=== PATIENT | male | born 1950 | race African-American/Black ===

== ENCOUNTER 2016-08-24 14:30 | Emergency (ER) | payer MEDICAID, OTHER ==
[~2016-08-24] VITALS: Ht 182.9 cm; Wt 85.0 kg
[2016-08-24] MEDS ORDERED: SODIUM CHLORIDE 0.9% 1,000 ML IV ONE (15:15)
[2016-08-24] MEDS ORDERED: SODIUM CHLORIDE 0.9% 1000ML BAG (SEPSIS BOLUS) IV ONE (15:15)
[2016-08-24 15:51] LABS: HEMATOCRIT. 35.9 % (42.0-52.0); MEAN CORPUSCULAR HEMOGLOBIN 35.5 pg (28.0-32.0); MEAN CORPUSCULAR HGB CONC 33.5 g/dL (31.0-37.0); MEAN CORPUSCULAR VOLUME 105.8 fL (80.0-94.0); MEAN PLATELET VOLUME 7.3 fl (7.4-10.4); PLATELET 271 x1000/uL (130-400); RED BLOOD CELL COUNT 3.39 mill/uL (4.7-6.1); RED CELL DISTRIBUTION WIDTH 12.4 % (11.6-14.6); WHITE BLOOD COUNT 3.1 x1000/uL (4.5-11.0)
[2016-08-24 15:55] LABS: DIFFERENTIAL COMMENT 1; INR 1.1
[2016-08-24 16:06] LABS: ANION GAP 13; CALCIUM 7.5 mg/dL (8.5-10.1); CARBON DIOXIDE 24 mEq/L (21-32); CHLORIDE 111 mEq/L (98-107); ETHANOL BLOOD 56 mg/dL; INDEX HEMOLYSI 1 (1-3); INDEX ICTERIC 1 (1-4); INDEX LIPEMIC 1 (1-3); TROPONIN I < 0.02 ng/mL (0.00-0.04); UREA NITROGEN BLOOD 13 mg/dL (7-21); eGFR > 60 mL/min (>60)
[2016-08-24 16:13] LABS: NUCLEATED RED BLOOD CELLS 2 /100 WBC; PLATELET ESTIMATE NORMAL
[2016-08-24 17:18] LABS: *AMPHETAMINES SCREEN URINE NEGATIVE (NEGATIVE); *BARBITURATES SCREEN URINE NEGATIVE (NEGATIVE); *BENZODIAZEPINES SCREEN URINE NEGATIVE (NEGATIVE); *COCAINE SCREEN URINE PRESUMTIVE POSITIVE (NEGATIVE); CANNABINOID URINE SCREEN PRESUMTIVE POSITIVE (NEGATIVE); ECSTASY MDMA SCREEN URINE NEGATIVE (NEGATIVE); METHADONE URINE SCREEN NEGATIVE (NEGATIVE); OPIATES URINE SCREEN NEGATIVE (NEGATIVE); PHENCYCLIDINE URINE SCREEN NEGATIVE (NEGATIVE)
[2016-08-24 18:06] VITALS: BP 120/61
== END 2016-08-24 18:08 | disposition home or self-care (01) ==
LOC: ER 14:35
DX: F12.10 Cannabis abuse, uncomplicated (principal); F14.10 Cocaine abuse, uncomplicated; I10 Essential (primary) hypertension
CPT/HCPCS: 36415; 71010; 80048; 80305; 84484; 85025; 85610; 93005; 96360; 99285; G0482; Z7610; J7030

== ENCOUNTER 2017-10-15 13:51 | Emergency (ER) | payer MEDICARE, MEDICAID ==
[~2017-10-15] VITALS: Ht 180.3 cm; Wt 100.0 kg
[2017-10-15] MEDS ORDERED: SODIUM CHLORIDE 0.9% 1,000 ML IV ONE (14:08)
[2017-10-15 14:33] LABS: BASOPHILS % 1.5 % (0.0-2.0); EOSINOPHILS % 1.3 % (0.0-5.0); HEMATOCRIT. 26.8 % (42.0-52.0); HEMOGLOBIN. 9.3 g/dL (14.0-18.0); LYMPHOCYTES % 25.5 % (20.0-50.0); MEAN CORPUSCULAR HEMOGLOBIN 36.5 pg (28.0-32.0); MEAN PLATELET VOLUME 6.9 fl (7.4-10.4); MONOCYTES % 13.6 % (2.0-8.0); NEUTROPHILS % 58.1 % (40.0-76.0); PLATELET 304 x1000/uL (130-400); RED BLOOD CELL COUNT 2.55 mill/uL (4.7-6.1); RED CELL DISTRIBUTION WIDTH 12.3 % (11.6-14.6)
[2017-10-15 14:36] LABS: CHLORIDE 112 mEq/L (98-107)
[2017-10-15 14:37] LABS: INR 1.1; PROTHROMBIN TIME 11.3 sec (9.4-11.6)
[2017-10-15 14:40] LABS: ETHANOL BLOOD < 10 mg/dL
[2017-10-15 17:07] VITALS: BP 130/65
== END 2017-10-15 17:28 | disposition home or self-care (01) ==
LOC: ER 13:51
DX: R55 Syncope and collapse (principal); I10 Essential (primary) hypertension; I69.351 Hemiplegia and hemiparesis following cerebral infarction affecting right dominant side; I69.328 Other speech and language deficits following cerebral infarction
CPT/HCPCS: 36415; 70450; 80053; 84484; 85025; 85610; 93005; 96360; 96361; 99285; G0482; J7030

== ENCOUNTER 2018-01-26 12:32 | Emergency (ER) | payer MEDICARE, MEDICAID ==
[~2018-01-26] VITALS: Ht 175.3 cm; Wt 86.0 kg
[2018-01-26 15:07] LABS: HEMATOCRIT. 39.2 % (42.0-52.0); HEMOGLOBIN. 13.2 g/dL (14.0-18.0); MEAN CORPUSCULAR HEMOGLOBIN 33.8 pg (28.0-32.0); MEAN CORPUSCULAR VOLUME 100.9 fL (80.0-94.0); MEAN PLATELET VOLUME 7.4 fl (7.4-10.4); PLATELET 283 x1000/uL (130-400); RED BLOOD CELL COUNT 3.89 mill/uL (4.7-6.1); RED CELL DISTRIBUTION WIDTH 13.6 % (11.6-14.6)
[2018-01-26 15:14] LABS: PROTHROMBIN TIME 10.4 sec (9.1-11.1)
[2018-01-26 15:16] LABS: CHLORIDE 111 mEq/L (98-107)
[2018-01-26 15:24] LABS: ETHANOL BLOOD < 10 mg/dL
[2018-01-26] MEDS ORDERED: ACETAMINOPHEN WITH CODEINE 300/30MG TABLET PO ONE (15:45)
[2018-01-26 16:10] VITALS: BP 140/71
[2018-01-26 16:42] LABS: ATYPICAL LYMPHOCYTES 3; PLATELET ESTIMATE NORMAL
== END 2018-01-26 16:12 | disposition home or self-care (01) ==
LOC: ER 12:32
DX: S40.011A Contusion of right shoulder, initial encounter (principal); S70.01XA Contusion of right hip, initial encounter; S40.021A Contusion of right upper arm, initial encounter; I69.951 Hemiplegia and hemiparesis following unspecified cerebrovascular disease affecting right dominant side; W18.2XXA Fall in (into) shower or empty bathtub, initial encounter; Y93.E1 Activity, personal bathing and showering; Y92.091 Bathroom in other non-institutional residence as the place of occurrence of the external cause
CPT/HCPCS: 36415; 71045; 73030; 73502; 73562; 80053; 83721; 83880; 84484; 85025; 85610; 93005; 99285; G0482

== ENCOUNTER 2018-05-01 10:08 | Inpatient (IN) | payer MEDICARE, MEDICAID ==
[~2018-05-01] VITALS: Ht 175.3 cm; Wt 97.1 kg
[2018-05-01] MEDS ORDERED: SODIUM CHLORIDE 0.9% 1,000 ML IV ONE (10:55)
[2018-05-01 11:14] LABS: HEMATOCRIT. 37.4 % (42.0-52.0); HEMOGLOBIN. 12.3 g/dL (14.0-18.0); MEAN CORPUSCULAR VOLUME 103.3 fL (80.0-94.0); RED BLOOD CELL COUNT 3.62 mill/uL (4.7-6.1); RED CELL DISTRIBUTION WIDTH 13.9 % (11.6-14.6)
[2018-05-01 11:21] LABS: PROTHROMBIN TIME 10.4 sec (9.1-11.1)
[2018-05-01 11:24] LABS: CHLORIDE 108 mEq/L (98-107)
[2018-05-01 11:28] LABS: ETHANOL BLOOD < 10 mg/dL
[2018-05-01 11:38] LABS: NUCLEATED RED BLOOD CELLS 1 /100 WBC
[2018-05-01 11:39] LABS: PLATELET ESTIMATE NORMAL
[2018-05-01 11:40] LABS: MEAN PLATELET VOLUME 7.8 fl (7.4-10.4); PLATELET 292 x1000/uL (130-400)
[2018-05-01] MEDS ORDERED: SODIUM CHLORIDE 0.9% 1000ML BAG (SEPSIS BOLUS) IV ONE (11:45)
[2018-05-01] MEDS ORDERED: PIPERACILLIN/TAZ 3.375G PREMIX 50 ML IV ONE (11:45)
[2018-05-01] MEDS ORDERED: VANCOMYCIN 1 G PREMIX 200 ML IV ONE (11:45)
[2018-05-01] MEDS: SODIUM CHLORIDE 0.45% 1,000 ML IV SCH ×2 (12:35→18:51)
[2018-05-01] MEDS ORDERED: LEVOFLOXACIN 500MG PREMIX 100 ML IV SCH ×2 (12:45→18:00)
[2018-05-01] MEDS ORDERED: DOCUSATE SODIUM 100MG CAPSULE PO PRN (12:45)
[2018-05-01] MEDS ORDERED: HYDROCODONE/ACETAMINOPHEN 5/325MG TABLET PO PRN (12:45)
[2018-05-01] MEDS ORDERED: ACETAMINOPHEN 325MG TABLET PO PRN (12:45)
[2018-05-01] MEDS ORDERED: CLONIDINE 0.1MG TABLET PO PRN (12:45)
[2018-05-01] MEDS ORDERED: LORAZEPAM 2MG/ML CPJ IV PRN (12:45)
[2018-05-01] MEDS ORDERED: ENOXAPARIN 40MG/0.4ML SYR SUBCUT SCH (12:45)
[2018-05-01] MEDS ORDERED: ONDANSETRON HCL 4MG/2ML INJ IV PRN (12:45)
[2018-05-01 17:00] VITALS: BP 106/60
[2018-05-01] MEDS: ENOXAPARIN 40MG/0.4ML SYR SUBCUT SCH (18:20)
[2018-05-01 20:48] VITALS: BP 92/65
[2018-05-01] MEDS: LEVOFLOXACIN 500MG PREMIX 100 ML IV SCH (21:10)
[2018-05-01] MEDS: GUAIFENESIN 200MG/10ML SUGAR FREE UDC PO PRN (21:57)
[2018-05-01 22:05] VITALS: BP 92/65
[2018-05-02 00:07] VITALS: BP 111/64
[2018-05-02 04:12] VITALS: BP 115/60
[2018-05-02 07:30] LABS: EOSINOPHILS % 0.2 % (0.0-5.0); HEMATOCRIT. 33.9 % (42.0-52.0); HEMOGLOBIN. 11.4 g/dL (14.0-18.0); LYMPHOCYTES % 20.3 % (20.0-50.0); MEAN CORPUSCULAR HEMOGLOBIN 34.9 pg (28.0-32.0); MEAN CORPUSCULAR VOLUME 103.6 fL (80.0-94.0); MEAN PLATELET VOLUME 7.6 fl (7.4-10.4); MONOCYTES % 10.8 % (2.0-8.0); NEUTROPHILS % 67.7 % (40.0-76.0); PLATELET 275 x1000/uL (130-400); RED BLOOD CELL COUNT 3.27 mill/uL (4.7-6.1)
[2018-05-02 07:54] LABS: CHLORIDE 112 mEq/L (98-107)
[2018-05-02 08:00] VITALS: BP 123/68
[2018-05-02] MEDS: ASPIRIN 81MG EC TABLET PO SCH (11:20)
[2018-05-02 12:00] VITALS: BP 117/70
[2018-05-02] MEDS: SODIUM CHLORIDE 0.45% 1,000 ML IV SCH (12:53)
[2018-05-02 16:00] VITALS: BP 113/64
[2018-05-02] MEDS: ENOXAPARIN 40MG/0.4ML SYR SUBCUT SCH (17:38)
[2018-05-02 20:00] VITALS: BP 114/63
[2018-05-02] MEDS: GUAIFENESIN 200MG/10ML SUGAR FREE UDC PO PRN (21:33)
[2018-05-02] MEDS: LEVOFLOXACIN 500MG PREMIX 100 ML IV SCH (21:33)
[2018-05-03 00:24] VITALS: BP 112/57
[2018-05-03 04:40] VITALS: BP 119/71
[2018-05-03] MEDS: SODIUM CHLORIDE 0.45% 1,000 ML IV SCH ×2 (04:46→20:25)
[2018-05-03 08:19] LABS: BASOPHILS % 1.1 % (0.0-2.0); EOSINOPHILS % 3.6 % (0.0-5.0); HEMATOCRIT. 31.6 % (42.0-52.0); HEMOGLOBIN. 10.7 g/dL (14.0-18.0); LYMPHOCYTES % 39.3 % (20.0-50.0); MEAN CORPUSCULAR HEMOGLOBIN 35.1 pg (28.0-32.0); MEAN CORPUSCULAR VOLUME 103.6 fL (80.0-94.0); MEAN PLATELET VOLUME 7.4 fl (7.4-10.4); MONOCYTES % 13.6 % (2.0-8.0); NEUTROPHILS % 42.4 % (40.0-76.0); PLATELET 290 x1000/uL (130-400); RED BLOOD CELL COUNT 3.05 mill/uL (4.7-6.1); RED CELL DISTRIBUTION WIDTH 13.4 % (11.6-14.6)
[2018-05-03] MEDS: ASPIRIN 81MG EC TABLET PO SCH (08:34)
[2018-05-03 08:35] LABS: CHLORIDE 112 mEq/L (98-107)
[2018-05-03 12:00] VITALS: BP 120/76
[2018-05-03 16:00] VITALS: BP 116/76
[2018-05-03] MEDS: ENOXAPARIN 40MG/0.4ML SYR SUBCUT SCH (19:01)
[2018-05-03 19:56] VITALS: BP 138/73
[2018-05-03] MEDS: LEVOFLOXACIN 500MG PREMIX 100 ML IV SCH (20:37)
[2018-05-03 23:57] VITALS: BP 119/68
[2018-05-04 04:03] VITALS: BP 117/74
[2018-05-04 08:00] VITALS: BP 130/69
[2018-05-04] MEDS: SODIUM CHLORIDE 0.45% 1,000 ML IV SCH ×2 (10:05→20:24)
[2018-05-04] MEDS: ASPIRIN 81MG EC TABLET PO SCH (10:05)
[2018-05-04 16:00] VITALS: BP 105/66
[2018-05-04] MEDS ORDERED: BENZONATATE 100MG CAPSULE PO PRN (16:30)
[2018-05-04] MEDS: ENOXAPARIN 40MG/0.4ML SYR SUBCUT SCH (19:02)
[2018-05-04 20:00] VITALS: BP 129/71
[2018-05-04] MEDS: GUAIFENESIN 600MG ER TABLET PO SCH (20:24)
[2018-05-04] MEDS: LEVOFLOXACIN 500MG PREMIX 100 ML IV SCH (20:24)
[2018-05-05] VITALS: BP 109/62
[2018-05-05 04:00] VITALS: BP 112/60
[2018-05-05 08:00] VITALS: BP 105/54
[2018-05-05] MEDS: GUAIFENESIN 600MG ER TABLET PO SCH (08:36)
[2018-05-05] MEDS: ASPIRIN 81MG EC TABLET PO SCH (08:36)
[2018-05-05 12:00] VITALS: BP 113/62
[2018-05-05 13:49] VITALS: BP 113/62
[2018-05-05 14:15] VITALS: BP 113/62
[2018-05-05] MEDS ORDERED: LEVOFLOXACIN 500MG TABLET PO SCH (22:00)
== END 2018-05-05 15:05 | disposition home or self-care (01) | DRG 871 ==
LOC: ER 10:08 → EDBD 10:08 → 6WST 12:17 → EDBEDREQ 12:19 → EDBEDREQTM 12:19 → SUPCPDRO 12:34 → ENRESERV 13:55
PROVIDERS: ADMIT Hospitalist; ATTEND Hospitalist
DX: A41.9 Sepsis, unspecified organism (principal); J18.9 Pneumonia, unspecified organism; J96.00 Acute respiratory failure, unspecified whether with hypoxia or hypercapnia; N17.9 Acute kidney failure, unspecified; I69.351 Hemiplegia and hemiparesis following cerebral infarction affecting right dominant side; I10 Essential (primary) hypertension; F10.20 Alcohol dependence, uncomplicated; Y90.9 Presence of alcohol in blood, level not specified; W17.89XA Other fall from one level to another, initial encounter; Y93.89 Activity, other specified; Y92.89 Other specified places as the place of occurrence of the external cause; Y99.8 Other external cause status
CPT/HCPCS: 36415; 71045; 83605; 83880; 84484; 93005; 93970; 96365; 96366; 96368; 97116; 97162; 97166; 99291; C1893; G0482; J1650; J1956; J2543; J3370; J7030

== ENCOUNTER 2019-03-03 15:19 | Emergency (ER) | payer MEDICARE, MEDICAID ==
[~2019-03-03] VITALS: Ht 175.3 cm; Wt 73.0 kg
[2019-03-03 16:56] VITALS: BP 135/78
== END 2019-03-03 16:57 | disposition home or self-care (01) ==
LOC: ER 15:19
DX: H57.89 Other specified disorders of eye and adnexa (principal); I10 Essential (primary) hypertension; F10.20 Alcohol dependence, uncomplicated; Z86.73 Personal history of transient ischemic attack (TIA), and cerebral infarction without residual deficits; Y90.9 Presence of alcohol in blood, level not specified
CPT/HCPCS: 99282